=== PATIENT | female | born 1985 | race Caucasian/White ===

== ENCOUNTER 2016-12-04 14:24 | Inpatient (IN) | payer OTHER ==
--- NOTE | 2016-12-04 14:58 | P.HPOB ---
History of Present Illness H&P Date: 12/04/16 Chief Complaint: labor 31 year old presents at 34 weeks 2 days complaining of contractions. Her cervix is 5/70/-2 and she is barbara every 3 minutes. heart tones 145- 150 with moderate variability and reactive. Review of Systems All systems: negative Constitutional: Denies chills, Denies fever Eyes: denies blurred vision, denies pain Ears, nose, mouth and throat: Denies headache, Denies sore throat Cardiovascular: Denies chest pain, Denies shortness of breath Respiratory: Denies cough Gastrointestinal: Denies abdominal pain, Denies diarrhea, Denies nausea, Denies vomiting Genitourinary: Denies dysuria, Denies hematuria Musculoskeletal: Denies myalgias Integumentary: Denies pruritus, Denies rash Neurological: Denies numbness, Denies weakness Psychiatric: Denies anxiety, Denies depression Endocrine: Denies fatigue, Denies weight change Past Medical History Additional Past Medical History / Comment(s): OB history: she has had one previous vaginal delivery and she has had care with me since the first trimester. A+, abs neg, Rub Imm, RPR NR, Hep B neg. History of Any Multi-Drug Resistant Organisms: None Reported Smoking Status: Never smoker Medications and Allergies Home Medications Medication Instructions Recorded Confirmed Type Acetaminophen [Tylenol] 325 mg PO Q4H PRN 12/04/16 12/04/16 History Allergies Allergy/AdvReac Type Severity Reaction Status Date / Time No Known Allergies Allergy Verified 11/26/16 15:04 Exam Osteopathic Statement: *. No significant issues noted on an osteopathic structural exam other than those noted in the History and Physical/Consult. - Vital Signs Vital signs: Intake and Output 12/03/16 12/04/16 12/04/16 22:59 06:59 14:59 Other: Weight 103.419 kg Patient Weight 12/05/16 06:59 Weight 103.419 kg Heart: RRR Lungs: CTAB Abdomen: soft, nontender Extremeties: neg denzel's Assessment and Plan (1) labor Status: Acute Plan: 1. celestone 2. IV abx for GBS ppx 3. I did call [facility] in [place] and they will accept a transfer of her if she remains 5cm for over 2 hours. Will recheck at that time and determine whether stable to transfer.
[2016-12-04] MEDS ORDERED: TERBUTALINE 1 MG/ML VIAL SQ PRN (14:59)
[2016-12-04] MEDS ORDERED: METHYLERGONOVINE 0.2 MG/ML 1 ML AMP IM PRN (14:59)
[2016-12-04] MEDS ORDERED: AMPICILLIN 2,000 MG in SODIUM CHLORIDE 0.9% 100 ML IVPB STA (14:59)
[2016-12-04] MEDS ORDERED: CARBOPROST TROMETHAMINE 250 MCG/ML 1 ML AMP IM PRN (14:59)
[2016-12-04] MEDS ORDERED: LIDOCAINE 1% (PF) 10 MG/ML (30 ML SDV) SQ PRN (14:59)
[2016-12-04] MEDS ORDERED: OXYTOCIN 10 UNIT/ML 1 ML VIAL IM PRN (14:59)
[2016-12-04] MEDS ORDERED: BETAMET ACET-BETAMETH SOD PHOS 6 MG/ML VIAL IM SCH (15:00)
[2016-12-04 15:17] VITALS: BMI 37.9
[2016-12-04] MEDS: LACTATED RINGERS 1,000 ML IV SCH ×2 (15:20→23:01)
[2016-12-04 15:48] LABS: Basophils % (A) 0 %; CH 27.8; CHCM 32.8; Eosinophils % (A) 0 %; HCT 33.6 % (34.0-46.0); HDW 2.78; HGB 10.9 gm/dL (11.4-16.0); Luc # (Auto) 0.17; Luc % (Auto) 2; Lymphocytes # (A) 1.4 k/uL (1.0-4.8); Lymphocytes % (A) 14 %; MCH 27.6 pg (25.0-35.0); MCHC 32.5 g/dL (31.0-37.0); MCV 85.1 fL (80.0-100.0); Mean Platelet Volume 10.3; Monocytes # (A) 0.4 k/uL (0-1.0); Monocytes % (A) 4 %; Neutrophils # (A) 8.3 k/uL (1.3-7.7); Neutrophils % (A) 81 %; RBC 3.94 m/uL (3.80-5.40); RDW 12.5 % (11.5-15.5); WBC 10.3 k/uL (3.8-10.6); WBC (Perox) 10.89
[2016-12-04] MEDS ORDERED: AMPICILLIN 1,000 MG in SODIUM CHLORIDE 0.9% 50 ML IVPB SCH (19:00)
[2016-12-04] MEDS ORDERED: OXYTOCIN 30 UNITS/500 ML NS 30 UNIT in SALINE 1 500ML.BAG IV SCH ×2 (20:45→23:00)
[2016-12-04] MEDS ORDERED: BUTORPHANOL 1 MG/ML 1 ML VIAL IV PRN (21:50)
[2016-12-04] MEDS ORDERED: diphenhydrAMINE 50 MG CAP PO PRN (22:46)
[2016-12-04] MEDS ORDERED: SIMETHICONE 80 MG CHEWABLE PO PRN (22:46)
[2016-12-04] MEDS ORDERED: HYDROCORTISONE 2.5% RECTAL CREAM 30 GM TUBE RECTAL PRN (22:46)
[2016-12-04] MEDS ORDERED: diphenhydrAMINE 50 MG/ML 1 ML VIAL IVP PRN ×2 (22:46)
[2016-12-04] MEDS ORDERED: ZOLPIDEM 5 MG TAB PO PRN (22:46)
[2016-12-04] MEDS ORDERED: ACETAMINOPHEN TAB 325 MG TAB PO PRN (22:46)
[2016-12-04] MEDS ORDERED: BENZOCAINE/MENTHOL SPRAY 1 GM/SPRAY AEROSOL TOPICAL PRN (22:46)
[2016-12-04] MEDS ORDERED: LANOLIN CREAM 5 GM TUBE TOPICAL PRN (22:46)
[2016-12-04] MEDS ORDERED: Acetaminophen-Codeine 300-30mg TAB PO PRN (22:46)
[2016-12-04] MEDS ORDERED: WITCH HAZEL 1 EACH MED..PAD TOPICAL PRN (22:46)
[2016-12-04] MEDS ORDERED: diphenhydrAMINE 25 MG CAP PO PRN (22:46)
--- NOTE | 2016-12-04 22:49 | P.PROBDLV ---
Vaginal Delivery Note - . Vaginal Delivery Note: 31-year-old presented at 34 weeks and 2 days and labor. Her cervix was 4- 5 cm dilated, 70% effaced, -2 station. She is barbara every 3 minutes. heart tones 140-145 with moderate variability and reactive. After a few hours her cervix changed to 6 cm dilated, 70% effaced, -2 station. Amniotomy was performed and clear fluid was noted. She stated 6 cm despite contractions every 3-4 minutes of Pitocin augmentation was started. She was completely dilated at 2119, pushed and delivered a viable male over intact perineum at 2231. Head delivered OA, anterior shoulder delivered gentle downward traction followed by posterior shoulder and rest of body. Nose and mouth bulb suctioned, cord clamped and cut, infant placed on mother's abdomen. Apgars 8, 9 , weight 6 lbs. 11 oz. Placenta delivered spontaneously, intact with three- vessel cord. Vagina, cervix, and perineum were inspected. Left labial laceration was repaired with 3-0 Vicryl. Estimated blood loss 150 mL. Mother in stable condition and baby taken to the nursery.
[2016-12-04] MEDS: Acetaminophen-Codeine 300-30mg TAB PO PRN (22:59)
[2016-12-05] MEDS: IBUPROFEN 600 MG TAB PO PRN ×3 (00:41→14:50)
[2016-12-05] MEDS: Acetaminophen-Codeine 300-30mg TAB PO PRN ×2 (04:44→10:00)
--- NOTE | 2016-12-05 06:40 | P.DS ---
Providers Date of admission: 12/04/16 15:11 Expected date of discharge: 12/05/16 Attending physician: Ade Vick Primary care physician: Stated None - Discharge Diagnosis(es) (1) labor Current Visit: Yes Status: Resolved (2) delivery Current Visit: Yes Status: Acute Hospital Course: Patient presented at 34 weeks and 2 days and labor. She did require some Pitocin augmentation but underwent normal vaginal delivery. Her course was then Paid. The baby was shipped to a tertiary hospital for care. She'll be discharged home day #1 in stable condition to follow-up with me in 6 weeks. Plan - Discharge Summary New Discharge Prescriptions: Acetaminophen-Codeine 300-30mg [Tylenol w/codeine #3] 2 each PO Q4HR PRN #30 tab PRN Reason: Moderate To Severe Pain Ibuprofen [Motrin] 600 mg PO Q6HR PRN #30 tab PRN Reason: Mild Pain Or Fever >= 100.5 Discharge Medication List Acetaminophen [Tylenol] 325 mg PO Q4H PRN 12/04/16 [History] Acetaminophen-Codeine 300-30mg [Tylenol w/codeine #3] 2 each PO Q4HR PRN #30 tab 12/05/16 [Rx] Ibuprofen [Motrin] 600 mg PO Q6HR PRN #30 tab 12/05/16 [Rx] Follow up Appointment(s)/Referral(s): Ade Vick DO [Doctor of Osteopathic Medicine] - 6 Weeks Discharge Disposition: HOME SELF-CARE
[2016-12-05] MEDS ORDERED: SENNOSIDES-DOCUSATE SODIUM 1 EACH TAB PO SCH (08:00)
[2016-12-05 08:56] VITALS: BP 118/72; PULSE 78; RESP 17
[2016-12-05 09:01] VITALS: TEMP 98.3
== END 2016-12-05 15:18 | disposition home or self-care (01) | DRG 775 ==
LOC: FBPOP 14:24 → 4FBP 15:11 → OBSVTOIN 15:12
PROVIDERS: ADMIT Obstetrics & Gynecology; ATTEND Obstetrics & Gynecology
PROC: 10E0XZZ Delivery of Products of Conception, External Approach (ICD-10-PCS; principal; 2016-12-04)
PROC: 0HQ9XZZ Repair Perineum Skin, External Approach (ICD-10-PCS; 2016-12-04)
DX: O60.14X0 Preterm labor third trimester with preterm delivery third trimester, not applicable or unspecified (principal); O70.0 First degree perineal laceration during delivery; Z37.0 Single live birth; Z3A.34 34 weeks gestation of pregnancy; Z79.899 Other long term (current) drug therapy
CPT/HCPCS: 59025; 85025; 88307; 99213

== ENCOUNTER → 2018-04-08 | Outpatient (CLI) | payer OTHER ==
--- NOTE | 2018-04-08 23:06 | MR ---
EXAMINATION TYPE: MR brain wo/w cspine wo DATE OF EXAM: 04/08/2018 COMPARISON: MRI cervical spine March 11, 2015. HISTORY: Migraine headaches, neck pain/stiffness x 3 years TECHNIQUE: Multiplanar, multisequence images of the brain and brainstem is performed without and with IV contras t, utilizing 10 mL intravenous Gadavist . Multiplanar, multisequence of the cervical spine is perform ed without IV contrast. FINDINGS: Diffusion weighted images demonstrate no evidence of a recent infarct or other diffusion ab normality. There is no extra-axial fluid collection or significant white matter signal abnormality. The ventricular system and cisternal spaces are normal in size and appearance. The brain volume is age appropriate. Midline structures demonstrate normal morphology. The craniocervical junction appears within normal limits. Post contrast images demonstrate slightly eccentric left sided enhancement along the anterio r falx axial image 19 and sagittal image 72 cannot exclude subcentimeter parasagittal meningioma. The dural venous sinuses appear patent. The visualized sinuses are clear and the globes are intact. IMPRESSION: Possible subcentimeter parasagittal meningioma otherwise unremarkable study. C-SPINE: FINDINGS: Sagittal images of the cervical spine show the craniocervical junction to remain within nor mal limits. The cervical and upper thoracic spinal cord is normal in course, caliber, and signal. V ertebral alignment is stable and satisfactory. The vertebral body and intravertebral disk heights ar e normal. No new or large posterior disc herniations are seen on sagittal images. The bone marrow sig nal intensity is within normal limits. No significant spurring is noted. Axial images show the C2-C3, C3-C4, and the C4-C5 levels all to remain within normal limits. Axial images at C5-C6 level disc demonstrate mild broad-based posterior disc protrusion minimally eff acing anterior thecal sac, bilateral neural foramina are patent. No significant change from prior. Axial images at C6-C7 level redemonstrate mild to minimal broad-based posterior disc protrusion minim ally effacing anterior thecal sac, bilateral neural foramina are patent. No significant change from p rior. Axial images at C7-T1 level are felt to remain within normal limits. Note is made of the 9 mm right thyroid nodule axial image 10. IMPRESSION: Stable tiny disc herniations at C5-C6 and C6-C7 levels. New right sided thyroid nodule, a dvise thyroid ultrasound follow-up to better evaluate and characterize.
== END | disposition home or self-care (01) ==
LOC: RADMRIMAIN 17:07
PROVIDERS: ATTEND Family Medicine
DX: G43.109 Migraine with aura, not intractable, without status migrainosus (principal); M50.122 Cervical disc disorder at C5-C6 level with radiculopathy
CPT/HCPCS: 70553; 72141; A9581

== ENCOUNTER → 2018-04-11 | Outpatient (CLI) | payer OTHER ==
--- NOTE | 2018-04-11 09:13 | MR ---
EXAMINATION TYPE: MR lumbar spine wo con DATE OF EXAM: 04/11/2018 COMPARISON: 04/03/2016 HISTORY: Intervertebral disc degeneration, lumbar TECHNIQUE: T1 and T2 axial and sagittal images of the lumbar spine are submitted. FINDINGS: There is no abnormal signal seen within the visualized spinal cord or paraspinal soft tissu es. At L1-2 there is no degenerative disc disease, disc herniation, canal stenosis or foraminal encroachm ent. At L2-3 there is no degenerative disc disease, disc herniation, canal stenosis or foraminal encroachm ent At L3-4 there is no degenerative disc disease, disc herniation, canal stenosis or foraminal encroachm ent At L4-5 there is previously noted disc bulging and is similar in appearance. Mild hypertrophic change of the facets. No Canal stenosis, focal herniation or foraminal encroachment. At L5-S1 there is no degenerative disc disease, disc herniation, canal stenosis or foraminal encroach ment IMPRESSION: 1. Minimal disc bulging L4-L5 is similar to the prior exam with no canal stenosis or foraminal encroa chment.
== END | disposition home or self-care (01) ==
LOC: RADMRIMAIN 08:11
PROVIDERS: ATTEND Family Medicine
DX: M51.26 Other intervertebral disc displacement, lumbar region (principal); G43.909 Migraine, unspecified, not intractable, without status migrainosus
CPT/HCPCS: 72148

== ENCOUNTER → 2018-04-24 | Outpatient (CLI) | payer OTHER ==
--- NOTE | 2018-04-24 15:00 | US ---
EXAMINATION TYPE: US thyroid st tissue head/neck DATE OF EXAM: 04/24/2018 COMPARISON: Cervical spine MRI March 11, 2015 CLINICAL HISTORY: E04.1 Thyroid nodule. assess for nodules GLAND SIZE: Right Lobe: 4.1 x 1.0 x 1.6 cm Overall Parenchyma: heterogenous Left Lobe: 3.1 x 1.1 x 1.6 cm Overall Parenchyma: homogeneous Isthmus Thickness: 0.2 cm NODULES RIGHT: # of nodules measured on right: 1 1. 1.1 X 1.3 x 0.7 cm hypoechoic solid nodule at the lower pole anteriorly with well-defined margin s. This nodule is wider than tall and shows intranodular vascularity. Prior size: FROZEN ME[employer]TER LEFT: # of nodules measured on left: 0 ISTHMUS: # of nodules measured in the isthmus: 0 Bilateral neck scanned, no evidence of lymphadenopathy. IMPRESSION: A 1.3 cm anterior lower pole solid right thyroid nodule. TR 4 lesion. Continued annual imaging surveillance advised. Moderately Suspicious: FNA if ? 1.5 cm; Follow if ? 1 cm
== END | disposition home or self-care (01) ==
LOC: RADUSWWP 13:39
PROVIDERS: ATTEND Family Medicine
DX: E04.1 Nontoxic single thyroid nodule (principal)
CPT/HCPCS: 76536

== ENCOUNTER → 2018-05-13 | Outpatient (CLI) | payer OTHER ==
--- NOTE | 2018-05-13 23:06 | MR ---
EXAMINATION TYPE: MR angio head wo con DATE OF EXAM: 05/13/2018 COMPARISON: None HISTORY: Severe Headaches, Dizzy x1 year TECHNIQUE: Time of flight images focusing on the [place] of [place] were performed without contrast. FINDINGS: There is arterial flow in the vertebrobasilar artery system. There is arterial flow in the anterior middle and posterior cerebral arteries. I see no evidence of aneurysm or neovascularity. The re is no evidence of stenosis. There is no mass effect.. IMPRESSION: Normal MR angiography exam of the brain.
--- NOTE | 2018-05-13 23:29 | MR ---
EXAMINATION TYPE: MR thoracic spine wo/w con DATE OF EXAM: 05/13/2018 COMPARISON: 03/15/2015 HISTORY: Mid Back Pain for a few years, Gadavist 9.5ml, Previous MRI on PACS CONTRAST: Standard multiplanar, multisequence MRI departmental protocol utilizing 9.5 mL intravenous Gadavist g adolinium contrast. FINDINGS: The thoracic vertebra have normal spacing and alignment. Thoracic spinal cord has normal si gnal pattern. There is no evidence of edema. There is no thoracic spinal stenosis. There is no parasp inal mass. There is no contrast pathologic enhancement. Neural foramina appear widely patent. IMPRESSION: Negative MR scan of the thoracic spine. No change compared to old exam.
== END | disposition home or self-care (01) ==
LOC: RADMRIMAIN 17:44
PROVIDERS: ATTEND Family Medicine
DX: G93.89 Other specified disorders of brain (principal)
CPT/HCPCS: 70544; 72157; A9581

== ENCOUNTER → 2018-05-17 | Outpatient (CLI) | payer OTHER ==
--- NOTE | 2018-05-17 23:22 | MR ---
EXAMINATION TYPE: MR hip RT wo/w con DATE OF EXAM: 05/17/2018 COMPARISON: None HISTORY: Rt hip pain x 3 years CONTRAST: Standard multiplanar, multisequence MRI departmental protocol utilizing 10 mL intravenous Gadavist ga dolinium contrast. FINDINGS: The pelvic ring is intact. There is no significant hip joint effusion. The femoral heads riojas ve fairly normal signal pattern. There is no evidence of edema. There is no sign of avascular necrosi s. Hip joint spaces are fairly well-maintained. Sacroiliac joints appear intact. There is a 3.5 cm cyst on the right ovary. There is 2 cm cyst on the left ovary. There is no free flu id in the pelvis. Bladder distends smoothly. I see no bony destructive process. IMPRESSION: Negative MR scan of the right hip. No evidence of hip dysplasia. No evidence of avascular necrosis. Bilateral ovarian cysts.
== END | disposition home or self-care (01) ==
LOC: RADMRIMAIN 17:29
PROVIDERS: ATTEND Family Medicine
DX: G93.89 Other specified disorders of brain (principal)

== ENCOUNTER 2018-05-24 12:34 | Day surgery (SDC) | payer OTHER ==
[2018-05-24 14:20] VITALS: PULSE 74; RESP 16; TEMP 97.9
[2018-05-24 14:21] VITALS: BP 144/74
--- NOTE | 2018-05-28 11:50 | US ---
ULTRASOUND GUIDED FNA THYROID BIOPSY: CLINICAL HISTORY: Right thyroid nodule FINDINGS: The procedure was explained to the patient. The risks, complications, benefits and alternatives were discussed and any questions were answered. Informed consent was obtained. Patient was placed supin e on the ultrasound table and prepped and draped in the usual sterile fashion. Utilizing a 25 gauge needle, five passes were made into the right thyroid nodule. Patient was stable throughout the procedure. Pathology is pending. All elements of maximal barrier technique were utilized. IMPRESSION: 1. Successful ultrasound guided FNA thyroid biopsy.
== END 2018-05-24 14:00 | disposition home or self-care (01) ==
LOC: RADPROMAIN 12:34
PROVIDERS: ATTEND Surgery
DX: E04.1 Nontoxic single thyroid nodule (principal)
CPT/HCPCS: 10022; 76942; 88173; 88305

== ENCOUNTER → 2019-03-01 | Outpatient (CLI) | payer OTHER ==
--- NOTE | 2019-03-01 20:17 | MR ---
EXAMINATION TYPE: MR shoulder RT wo con DATE OF EXAM: 03/01/2019 COMPARISON: None HISTORY: Rt shoulder pain, arthritis, tendonitis TECHNIQUE: Multiplanar, multisequence imaging of the right shoulder is performed without contrast. FINDINGS: There is mild shoulder joint effusion. Subscapularis tendon is intact. The biceps tendon is intact. G lenoid aiden appear intact. I see no bony destructive process. There is no subacromial impingement. T here is very minimal thickening of the supraspinatus tendon without a full-thickness tear. The AC isaura nt is intact. IMPRESSION: Small shoulder joint effusion consistent with mild synovitis. Minimal thickening of the supraspinatus tendon at the greater tuberosity consistent with minimal tend initis. No full-thickness tear.
--- NOTE | 2019-03-01 20:25 | MR ---
EXAMINATION TYPE: MR brain wo/w con DATE OF EXAM: 03/01/2019 COMPARISON: 04/08/2018 HISTORY: Migraine, meningioma TECHNIQUE: Multiplanar, multisequence images of the brain and brainstem is performed without and with IV contras t, utilizing 10 mL intravenous Gadavist . FINDINGS: Ventricles of normal size. There is no mass effect nor midline shift. There is no sign of intracrania l hemorrhage. There is no evidence of cerebral edema. There is no evidence of cortical infarct. There is no evidence of posterior fossa mass. There is a 3 mm focus of increased signal in the white matte r of the right parietal lobe on the FLAIR images. There is similar 3 mm focus right posterior tempora l lobe white matter. There is slight thickening of the anterior cerebral falx on the left side that a ppears unchanged and measures 3.5 mm. This could be a tiny meningioma. Brainstem is intact. Cerebellum appears normal. Corpus callosum is normal. There is no evidence of a sellar mass. IMPRESSION: Possible tiny falx meningioma unchanged compared to old exam. Tiny white matter high sign al foci as above of doubtful significance.
== END | disposition home or self-care (01) ==
LOC: RADMRIMAIN 11:11
PROVIDERS: ATTEND Family Medicine
DX: M75.81 Other shoulder lesions, right shoulder (principal); R90.82 White matter disease, unspecified
CPT/HCPCS: 70553; 73221; A9585

== ENCOUNTER → 2019-06-12 | Outpatient (CLI) | payer OTHER ==
--- NOTE | 2019-06-12 13:08 | US ---
EXAMINATION TYPE: US thyroid st tissue head/neck DATE OF EXAM: 06/12/2019 COMPARISON: US of 04/17/1718 and 05/17/1718 CLINICAL HISTORY: R22.0 Localized swelling, mass and lump, head. F/U right nodule GLAND SIZE: Right Lobe: 3.2 x 1.2 x 1.1 cm Overall Parenchyma: heterogenous Left Lobe: 3.5 x 1.2 x 1.0 cm Overall Parenchyma: homogeneous Isthmus Thickness: 0.2 cm NODULES RIGHT: # of nodules measured on right: 1 1. 1.1 X 0.7 x 0.9 cm hypoechoic solid nodule at the lower pole with well-defined margins; This no dule is wider than tall and shows intranodular vascularity. Prior size: 1.3 x 0.9 x 1.1 cm Bilateral neck scanned, no evidence of lymphadenopathy. Nodule right lobe decrease in size when carly red to previous IMPRESSION: Previously biopsied right thyroid nodule appears slightly smaller in size in the prior of 04/24/2018.
== END ==
LOC: RADUSWWP 12:29
PROVIDERS: ATTEND Family Medicine
DX: E04.1 Nontoxic single thyroid nodule (principal)
CPT/HCPCS: 76536

== ENCOUNTER → 2021-06-14 | Outpatient (CLI) | payer OTHER ==
[2021-06-14 20:21] LABS: Basophils # (A) 0.03 X 10*3/uL (0.00-0.10); Basophils % (A) 0.4 %; Eosinophils # (A) 0.09 X 10*3/uL (0.04-0.35); Eosinophils % (A) 1.3 %; HGB 13.4 g/dL (12.0-15.0); Lymphocytes # (A) 2.05 X 10*3/uL (0.90-5.00); Lymphocytes % (A) 28.7 %; MCH 28.9 pg (27.0-32.0); MCHC 31.9 g/dL (32.0-37.0); MCV 90.5 fL (80.0-97.0); Mean Platelet Volume 12.8 fL (9.5-12.2); Monocytes # (A) 0.43 X 10*3/uL (0.20-1.00); Neutrophils # (A) 4.53 X 10*3/uL (1.80-7.70); Neutrophils % (A) 63.3 %; Platelet Count 173 X 10*3/uL (140-440); RBC 4.64 X 10*6/uL (4.10-5.20); RDW 12.6 % (11.5-14.5); WBC 7.15 X 10*3/uL (4.50-10.00)
[2021-06-14 21:13] LABS: African American GFR (CKD) 112.3 (60.0-200.0); Albumin 4.5 g/dL (3.80-4.90); Albumin/Globulin Ratio 1.73 (1.60-3.17); Anion Gap 9.5 mmol/L (4.00-12.00); BUN/Creat Ratio 16.25 Ratio (12.00-20.00); Calcium 8.9 mg/dL (8.7-10.3); Carbon Dioxide 20.5 mmol/L (21.6-31.8); Globulin 2.6 g/dL (1.6-3.3); Non-African American GFR(CKD) 96.9 (60.0-200.0); Total Bilirubin 0.3 mg/dL (0.3-1.2); Total Protein 7.1 g/dL (6.2-8.2)
== END | disposition home or self-care (01) ==
LOC: LABWHC1 13:26
PROVIDERS: ATTEND Nurse Practitioner Acute Care
DX: E55.9 Vitamin D deficiency, unspecified (principal); M35.3 Polymyalgia rheumatica; I49.9 Cardiac arrhythmia, unspecified
CPT/HCPCS: 36415; 80053; 82306; 82607; 84207; 84439; 84443; 84481; 85025; 86038; 86431; 93005

== ENCOUNTER 2023-04-27 21:15 | Outpatient (CLI) | payer OTHER ==
[2023-04-27] MEDS ORDERED: LACTATED RINGERS 1,000 ML IV SCH (22:00)
[2023-04-27 22:18] LABS: Appearance,Urine Clear (Clear); Bilirubin,Urine Negative (Negative); Blood,Urine Negative (Negative); Color,Urine Yellow; Glucose,Urine (UA) Negative (Negative); Ketones,Urine Negative (Negative); Leukocyte Esterase,Urine Moderate (Negative); Mucus,Urine Rare /hpf; Nitrite,Urine Negative (Negative); Protein,Urine Trace (Negative); RBC,Urine <1 /hpf (0-5); Specific Gravity,Urine 1.017 (1.001-1.035); Squamous Epithelial Cell,Urine 5 /hpf (0-4); WBC,Urine 9 /hpf (0-5)
[2023-04-27 23:59] VITALS: BP 124/86; PULSE 109; RESP 17; TEMP 97.7
--- NOTE | 2023-05-07 21:12 | P.MSEPDOC ---
Presenting Problems - Arrival Data Date of Arrival on Unit: 04/27/23 Time of Arrival on Unit: 21:15 Mode of Transport: Ambulatory - Complaint OB-Reason for Admission/Chief Complaint: Possible Onset of Labor Comment: pt presents to triage for cramping, contractions, and back pain, rating pain 05/07, Medical History - Information : 4 Para: 2 Term: 1 : 1 Abortions: Spontaneous or Elective: 1 Number of Living Children: 2 - Gestational Age Gestational Age by TEDDY (wks/days): 35 Weeks and 2 Days - History Complications: Prior Comment: hx of 33 week delivery Review of Systems - Review of Systems Constitutional: No problems Breast: No problems ENT: No problems Cardiovascular: No problems Respiratory: No problems Gastrointestinal: No problems Genitourinary: No problems Musculoskeletal: No problems Neurological: No problems Skin: No problems Vital Signs - Temperature Temperature: 97.7 F Temperature Source: Temporal Artery Scan - Pulse Right Brachial Pulse Rate: 109 Pulse Assessment Method: Automatic Cuff - Respirations Respiratory Rate: 17 Oxygen Delivery Method: Room Air - Blood Pressure Right Arm Blood Pressure: 124/86 Blood Pressure Mean: 98 Blood Pressure Source: Automatic Cuff Medical Screen Scoring - Cervical Exam Dilation (cm): 1 Effacement (%): 50 Station: -3 Membranes: Intact - Uterine Contractions Frequency From (mins): 1 Frequency To (mins): 3 Duration From (seconds): 40 Duration To (seconds): 60 Intensity: Mild Resting: Soft to palpation - Assessment - Baby A Baseline FHR: 150 Heart Rate - NICHD Category: Category I (Normal) NST: Reactive Physician Notification - Physician Notified Physician Notified Date: 04/27/23 Physician Notified Time: 21:50 Physician: Claudia Coates New Order Received: Yes - Notification Comment Comment: pt's ua sent, ivf bolus given, cervical exam the same, pt decided to go home when given the choice to stay longer, she has scheduled appt with Dr. Byrne on Friday 05/04 Maternal Triage Index - Maternal Triage Index Presenting for scheduled procedure w/no complaint: No - Stat/Priority 1 Stat Priority 1: No - Urgent/Priority 2 Urgent Priority 2: Yes Provider Notified: Claudia Coates Provider Notified Time: 21:50 Criteria Met for Priority 2: pt 35 2/7 GA, pt presents to triage for cramping, contractions, and back pain, rating pain 05/07 Disposition - Disposition OB Disposition: Triage, Discharge to home, Written follow up instructions reviewed Discharge Date: 04/27/23 Discharge Time: 23:30 I agree with the RN Medical Screening Exam: Yes Case reviewed; plan agreed upon as documented in EMR&OBIX.: Yes Diagnosis: FALSE LABOR BEFORE 37 COMPLETED WEEKS OF GEST, THIRD TRI
== END 2023-04-27 23:30 | disposition home or self-care (01) ==
LOC: FBPOP 21:15
PROVIDERS: ATTEND Obstetrics & Gynecology
DX: O47.03 False labor before 37 completed weeks of gestation, third trimester (principal); Z3A.35 35 weeks gestation of pregnancy
CPT/HCPCS: 59025; 96360; 81001; G0463; 99214

== ENCOUNTER 2023-05-27 09:50 | Inpatient (IN) | payer OTHER ==
[2023-05-27] MEDS ORDERED: CARBOPROST TROMETHAMINE 250 MCG/ML 1 ML AMP IM PRN (10:24)
[2023-05-27] MEDS ORDERED: OXYTOCIN 10 UNIT/ML 1 ML VIAL IM PRN (10:24)
[2023-05-27] MEDS ORDERED: miSOPROStoL 200 MCG TAB PO PRN (10:24)
[2023-05-27] MEDS ORDERED: LIDOCAINE 0.5% (PF) 5 MG/ML (50 ML SDV) SQ PRN (10:24)
[2023-05-27] MEDS ORDERED: TRANEXAMIC 1,000 MG/100ML-NACL 1,000 MG in EMPTY BAG 1 BAG IV PRN (10:24)
[2023-05-27] MEDS ORDERED: METHYLERGONOVINE 0.2 MG/ML 1 ML AMP IM PRN (10:24)
[2023-05-27] MEDS ORDERED: TERBUTALINE 1 MG/ML VIAL SQ PRN (10:24)
[2023-05-27] MEDS ORDERED: LACTATED RINGERS 1,000 ML IV SCH (10:30)
[2023-05-27 11:22] LABS: Basophils % (A) 0 %; Eosinophils # (A) 0.1 k/uL (0-0.7); Eosinophils % (A) 1 %; HCT 40.6 % (34.0-46.0); HGB 13.7 gm/dL (11.4-16.0); Lymphocytes # (A) 1.9 k/uL (1.0-4.8); Lymphocytes % (A) 14 %; MCH 29.1 pg (25.0-35.0); MCHC 33.7 g/dL (31.0-37.0); MCV 86.4 fL (80.0-100.0); Mean Platelet Volume 11.7; Monocytes # (A) 0.4 k/uL (0-1.0); Monocytes % (A) 3 %; Neutrophils % (A) 81 %; Platelet Count 112 k/uL (150-450); RBC 4.69 m/uL (3.80-5.40); WBC 13.6 k/uL (3.8-10.6)
[2023-05-27 12:41] LABS: Large Platelets Present
[2023-05-27] MEDS ORDERED: SODIUM CHLORIDE 0.9% 100 ML BAG ONE (12:53)
[2023-05-27] MEDS ORDERED: fentaNYL (PF) 50 MCG/ML 5 ML AMP ONE (12:53)
[2023-05-27] MEDS ORDERED: ROPIVACAINE 5 MG/ML 20 ML AMPULE ONE (12:53)
--- NOTE | 2023-05-27 13:32 | P.HPOB ---
History of Present Illness H&P Date: 05/27/23 Chief Complaint: Spontaneous rupture of membranes This is a 37-year-old female 3 para 2 at 39-4/7 weeks with an estimated date of confinement of 05/30/2023, who presents for complaints of rupture of membranes at approximately 8:30 AM this morning with yellow colored fluid. She has been feeling contractions for a few days now but they have become stronger since rupture of membranes. Her care has been with Dr. Vick and has been relatively uncomplicated. She was on Villarreal injections due to history of a delivery with her second child at 34 weeks. She did react to the Jolly with welts on her arms and therefore did stop it at approximately 26 weeks. Her last ultrasound at 35 weeks' did show an estimated weight of 7 lbs. 5 oz. and greater than 90th percentile with an SAUL a level of 25.83 cm. labs: Group B streptococcus-negative One hour Glucola-113 [id number], female Hemoglobin-13.2 Blood type A positive Antibody screen-negative Rubella-immune Toxoplasma-negative RPR-nonreactive HIV-nonreactive Hepatitis C virus antibody-negative Random glucose-88 Hepatitis B surface antigen-negative GC/chlamydia/Trichomonas-negative Obstetrical history: . History of 1 vaginal delivery at 38 weeks with weight of 7 lbs. 9 oz. and a 34 week delivery with a weight of 6 lbs. 11 oz. DIRECTOR DATABASE history: No history of STDs Social history: She is single. She is currently unemployed. Review of Systems Constitutional: Denies chills, Denies fever Eyes: denies blurred vision, denies pain Ears, nose, mouth and throat: Denies headache, Denies sore throat Cardiovascular: Denies chest pain, Denies shortness of breath Respiratory: Denies cough Gastrointestinal: Reports abdominal pain (Irregular contractions) Genitourinary: Reports pelvic pain, Reports Musculoskeletal: Reports low back pain Integumentary: Denies pruritus, Denies rash Neurological: Denies numbness, Denies weakness Psychiatric: Denies anxiety, Denies depression Past Medical History Additional Past Medical History / Comment(s): 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, stable-get yearly scans History of Any Multi-Drug Resistant Organisms: None Reported Past Surgical History: Tonsillectomy Additional Past Surgical History / Comment(s): polyp in ear removed age 16 Past Anesthesia/Blood Transfusion Reactions: No Reported Reaction Past Psychological History: No Psychological Hx Reported Smoking Status: Never smoker Past Alcohol Use History: None Reported Past Drug Use History: None Reported - Past Family History Mother Family Medical History: Diabetes Mellitus, Hypertension Medications and Allergies Home Medications Medication Instructions Recorded Confirmed Type Vit No.179/Iron/Folic 1 each PO DAILY 04/27/23 05/27/23 History [ Tablet] Allergies Allergy/AdvReac Type Severity Reaction Status Date / Time No Known Allergies Allergy Verified 05/27/23 09:57 Exam Osteopathic Statement: *. No significant issues noted on an osteopathic structural exam other than those noted in the History and Physical/Consult. Vital Signs Temp Pulse Resp BP Pulse Ox 05/27/23 09:54 98.1 F 77 18 132/81 99 Intake and Output 05/26/23 05/27/23 05/27/23 22:59 06:59 14:59 Other: Weight 108.409 kg HEENT: Within normal limits Heart: Regular rate and rhythm Lungs: Clear to auscultation bilaterally Abdomen: Cervix: On admission is 5 cm/50%/-2 station with positive amnisure and meconium- stained fluid noted heart tones: 140s, reactive, with good variability and category 1 Contractions: Every 2-3 minutes Extremities: Negative Homans Results Result Diagrams: 05/27/23 11:00 Abnormal Lab Results - Last 24 Hours (Table) 05/27/23 Range/Units 11:00 WBC 13.6 H (3.8-10.6) k/uL Plt Count 112 L (150-450) k/uL Neutrophils # 11.0 H (1.3-7.7) k/uL Assessment and Plan (1) 39 weeks gestation of Current Visit: Yes Status: Acute Code(s): Z3A.39 - 39 WEEKS GESTATION OF SNOMED Code(s): 46923688 (2) Meconium in amniotic fluid Current Visit: Yes Status: Acute Code(s): P96.83 - MECONIUM STAINING SNOMED Code(s): 595325904 Plan: Admission for active labor. Epidural anesthesia. Expectant management. Pediatrics is notified regarding meconium fluid and will be present for delivery. macrosomia based on ultrasound was discussed with the patient. Discussed the possibility of potential shoulder dystocia and maneuvers necessary to relieve it. Since she is progressing well in labor will still plan to continue with plan for vaginal delivery.
--- NOTE | 2023-05-27 13:37 | P.MSEPDOC ---
Presenting Problems - Arrival Data Date of Arrival on Unit: 05/27/23 Time of Arrival on Unit: 09:51 Mode of Transport: Wheelchair - Complaint OB-Reason for Admission/Chief Complaint: Rule Out SROM Comment: 829, yellow fluid Medical History - Information : 3 Para: 2 Term: 1 : 1 Abortions: Spontaneous or Elective: 0 Number of Living Children: 2 - Gestational Age Gestational Age by TEDDY (wks/days): 39 Weeks and 4 Days Review of Systems - Review of Systems Constitutional: No problems Breast: No problems ENT: No problems Cardiovascular: No problems Respiratory: No problems Gastrointestinal: No problems Genitourinary: No problems Musculoskeletal: No problems Neurological: No problems Skin: No problems Vital Signs - Temperature Temperature: 98.1 F Temperature Source: Oral - Pulse Right Pulse Oximetery Pulse Rate: 77 Pulse Assessment Method: Pulse Oximetry - Respirations Respiratory Rate: 18 Oxygen Delivery Method: Room Air O2 Sat by Pulse Oximetry: 99 - Blood Pressure Right Arm Blood Pressure: 132/81 Blood Pressure Mean: 98 Blood Pressure Source: Automatic Cuff Medical Screen Scoring - Cervical Exam Dilation (cm): 5 Effacement (%): 50 Station: -2 Membranes: Ruptured - Uterine Contractions Frequency From (mins): 2 Frequency To (mins): 3 Duration From (seconds): 40 Duration To (seconds): 50 Intensity: Moderate Resting: Soft to palpation - Assessment - Baby A Baseline FHR: 140 Heart Rate - NICHD Category: Category I (Normal) NST: Reactive Physician Notification - Physician Notified Physician Notified Date: 05/27/23 Physician Notified Time: 10:45 Physician: Claudia Coates Order Received: Yes - Notification Comment Comment: pt admitted for labor. Maternal Triage Index - Maternal Triage Index Presenting for scheduled procedure w/no complaint: No - Stat/Priority 1 Stat Priority 1: No - Urgent/Priority 2 Urgent Priority 2: No - Prompt/Priority 3 Prompt Priority 3: No - Non-Urgent/Priority 4 Non-Urgent Priority 4: Yes Criteria Met for Priority 4: SROM 39 weeks Disposition - Disposition OB Disposition: Admit I agree with the RN Medical Screening Exam: Yes Case reviewed; plan agreed upon as documented in EMR&OBIX.: Yes Diagnosis: ENCOUNTER FOR FULL-TERM UNCOMPLICATED DELIVERY
[2023-05-27] MEDS: OXYTOCIN 30 UNITS/500 ML NS 30 UNIT in SALINE 1 500ML.BAG IV SCH ×2 (15:14→19:45)
--- NOTE | 2023-05-27 18:10 | P.PROBDLV ---
Vaginal Delivery Note - . Vaginal Delivery Note: The patient progressed to complete dilation after oxytocin augmentation of labor and epidural anesthesia. Her initial epidural was not working well and therefore she did use nitrous for a short while. They did replace the epidural and the second one did work much better for her. Once reaching complete, she began pushing. 's head came to a crown. With one further push, the 's head delivered across the perineum in a right occiput anterior lie followed by the anterior or left shoulder. Thick meconium was noted and nuchal cord times one was reduced around the 's head. Nose and mouth were bulb suctioned. With one further push the remainder the infant was delivered and placed on mother's abdomen. Cord was immediately clamped and cut and was taken to warmer for evaluation by Dr. Clarke from pediatrics. A viable female infant was noted with scores of 7 at 1 minute and 9 at 5 minutes and infant weight of 8 pounds 7.5 ounces. Placenta delivered shortly thereafter intact, with a three-vessel cord. Meconium staining was noted and there was noted to be what appeared to be a fore bag. Uterus contracted well after oxytocin was given and uterine massage was carried out. Inspection of the perineum revealed no perineal lacerations. Estimated blood loss is approximately 150 mL's. Both mother and are in stable condition.
[2023-05-27] MEDS ORDERED: HYDROCORTISONE 2.5% RECTAL CREAM 30 GM TUBE RECTAL PRN (19:17)
[2023-05-27] MEDS ORDERED: diphenhydrAMINE 50 MG/ML 1 ML VIAL IVP PRN ×2 (19:17)
[2023-05-27] MEDS ORDERED: BENZOCAINE/MENTHOL SPRAY 1 GM/SPRAY AEROSOL TOPICAL PRN (19:17)
[2023-05-27] MEDS ORDERED: diphenhydrAMINE 25 MG CAP PO PRN (19:17)
[2023-05-27] MEDS ORDERED: SIMETHICONE 80 MG CHEWABLE PO PRN (19:17)
[2023-05-27] MEDS ORDERED: OXYTOCIN 30 UNITS/500 ML NS 30 UNIT in SALINE 1 500ML.BAG IV SCH (19:17)
[2023-05-27] MEDS ORDERED: ZOLPIDEM 5 MG TAB PO PRN (19:17)
[2023-05-27] MEDS ORDERED: LANOLIN CREAM 5 GM TUBE TOPICAL PRN (19:17)
[2023-05-27] MEDS ORDERED: ACETAMINOPHEN TAB 325 MG TAB PO PRN (19:17)
[2023-05-27] MEDS ORDERED: diphenhydrAMINE 50 MG CAP PO PRN (19:17)
[2023-05-27] MEDS ORDERED: SENNOSIDES-DOCUSATE SODIUM 1 EACH TAB PO SCH (20:00)
[2023-05-27] MEDS: IBUPROFEN 600 MG TAB PO PRN (20:08)
[2023-05-28] MEDS: IBUPROFEN 600 MG TAB PO PRN ×3 (02:50→15:36)
[2023-05-28 07:17] LABS: Basophils % (A) 0 %; Eosinophils # (A) 0.1 k/uL (0-0.7); Eosinophils % (A) 1 %; HCT 32.8 % (34.0-46.0); HGB 11.4 gm/dL (11.4-16.0); Lymphocytes % (A) 14 %; MCH 30.4 pg (25.0-35.0); MCHC 34.6 g/dL (31.0-37.0); MCV 87.9 fL (80.0-100.0); Mean Platelet Volume 11.2; Monocytes # (A) 0.5 k/uL (0-1.0); Monocytes % (A) 4 %; Neutrophils # (A) 11.1 k/uL (1.3-7.7); Neutrophils % (A) 80 %; Platelet Count 106 k/uL (150-450); RBC 3.74 m/uL (3.80-5.40); RDW 14.4 % (11.5-15.5); WBC 13.9 k/uL (3.8-10.6)
[2023-05-28 08:30] VITALS: RESP 17
--- NOTE | 2023-05-28 08:32 | P.DS ---
Providers Date of admission: 05/27/23 10:19 Expected date of discharge: 05/28/23 Attending physician: Ade Vick Primary care physician: Stated None - Discharge Diagnosis(es) (1) Normal vaginal delivery Current Visit: Yes Status: Acute Hospital Course: Patient presented in active labor. She underwent a Normal vaginal delivery. course has been uneventful. She denies nausea, vomiting, chest pain, shortness of breath or calf pain. Patient will be discharged home day #1 in stable condition to follow-up with me in 6 weeks. Plan - Discharge Summary New Discharge Prescriptions: New Ibuprofen [Motrin] 600 mg PO Q6HR PRN #30 tab PRN Reason: Mild Pain (Scale 1 To 3) No Action Vit No.179/Iron/Folic [ Tablet] 1 each PO DAILY Discharge Medication List Vit No.179/Iron/Folic [ Tablet] 1 each PO DAILY 04/27/23 [History] Ibuprofen [Motrin] 600 mg PO Q6HR PRN #30 tab 05/28/23 [Rx] Follow up Appointment(s)/Referral(s): Ade Vick DO [Doctor of Osteopathic Medicine] - 6 Weeks Discharge Disposition: HOME SELF-CARE
[2023-05-28] MEDS ORDERED: PRENATAL VIT-IRON-FOLIC ACID 1 EACH TABLET PO SCH (09:00)
[2023-05-28 15:47] VITALS: BP 123/82; PULSE 82; TEMP 97.9
== END 2023-05-28 18:24 | disposition home or self-care (01) | DRG 560 ==
LOC: FBPOP 09:50 → 4FBP 10:19
PROVIDERS: ADMIT Obstetrics & Gynecology; ATTEND Obstetrics & Gynecology
PROC: 10E0XZZ Delivery of Products of Conception, External Approach (ICD-10-PCS; principal; 2023-05-27)
PROC: 3E033VJ Introduction of Other Hormone into Peripheral Vein, Percutaneous Approach (ICD-10-PCS; 2023-05-27)
DX: O42.92 Full-term premature rupture of membranes, unspecified as to length of time between rupture and onset of labor (principal); O69.81X0 Labor and delivery complicated by cord around neck, without compression, not applicable or unspecified; Z37.0 Single live birth; O36.63X0 Maternal care for excessive fetal growth, third trimester, not applicable or unspecified; O77.0 Labor and delivery complicated by meconium in amniotic fluid; Z3A.39 39 weeks gestation of pregnancy; Z56.0 Unemployment, unspecified
CPT/HCPCS: 59025; 84112; 85025; 86850; 86900; 86901; 99213

== ENCOUNTER 2023-06-11 08:44 | Outpatient (CLI) | payer OTHER ==
[2023-06-11 09:40] LABS: Appearance,Urine Cloudy (Clear); Bacteria,Urine Many /hpf; Bilirubin,Urine Negative (Negative); Blood,Urine Large (Negative); Color,Urine Yellow; Glucose,Urine (UA) Negative (Negative); Ketones,Urine Negative (Negative); Leukocyte Esterase,Urine Large (Negative); Mucus,Urine Few /hpf; Nitrite,Urine Positive (Negative); PH, Urine 5.5 (5.0-8.0); Protein,Urine Trace (Negative); RBC,Urine 5 /hpf (0-5); Specific Gravity,Urine 1.016 (1.001-1.035); Squamous Epithelial Cell,Urine 1 /hpf (0-4); Urobilinogen,Urine <2.0 mg/dL (<2.0); WBC,Urine 127 /hpf (0-5)
[2023-06-11 09:55] LABS: Basophils % (A) 0 %; Eosinophils # (A) 0.2 k/uL (0-0.7); Eosinophils % (A) 2 %; HCT 39.4 % (34.0-46.0); HGB 13.4 gm/dL (11.4-16.0); Lymphocytes # (A) 0.9 k/uL (1.0-4.8); Lymphocytes % (A) 10 %; MCH 29.3 pg (25.0-35.0); MCV 86.3 fL (80.0-100.0); Mean Platelet Volume 9.2; Monocytes # (A) 0.4 k/uL (0-1.0); Monocytes % (A) 4 %; Neutrophils # (A) 7.7 k/uL (1.3-7.7); Neutrophils % (A) 83 %; RBC 4.57 m/uL (3.80-5.40); RDW 13.3 % (11.5-15.5); WBC 9.3 k/uL (3.8-10.6)
[2023-06-11 10:00] LABS: Platelet Count 167 k/uL (150-450)
[2023-06-11 10:55] VITALS: BP 119/56; PULSE 99; RESP 16; TEMP 97.6
--- NOTE | 2023-06-13 18:10 | P.MSEPDOC ---
Presenting Problems - Arrival Data Date of Arrival on Unit: 06/11/23 Mode of Transport: Ambulatory - Complaint OB-Reason for Admission/Chief Complaint: Other Comment: p/p jayjay ness and temp Medical History - Information : 3 Para: 3 Term: 3 : 0 Abortions: Spontaneous or Elective: 0 Number of Living Children: 3 - Gestational Age Gestational Age by TEDDY (wks/days): 40 Weeks and 0 Days - History Complications: Other Comment: 2 weeks pp Review of Systems - Review of Systems Constitutional: Fever Breast: No problems ENT: No problems Cardiovascular: No problems Respiratory: No problems Gastrointestinal: No problems Genitourinary: No problems Musculoskeletal: No problems Neurological: No problems Skin: No problems Vital Signs - Temperature Temperature: 97.6 F Temperature Source: Temporal Artery Scan - Pulse Right Radial Pulse Rate: 99 Pulse Assessment Method: Automatic Cuff - Respirations Respiratory Rate: 16 Oxygen Delivery Method: Room Air O2 Sat by Pulse Oximetry: 99 - Blood Pressure Right Arm Blood Pressure: 119/56 Blood Pressure Mean: 77 Blood Pressure Source: Automatic Cuff Physician Notification - Physician Notified Physician Notified Date: 06/11/23 Physician Notified Time: 09:30 Physician: Claudia Coates Order Received: Yes Maternal Triage Index - Scheduled/Requesting Priority 5 Scheduled/Requesting Priority 5: Yes Criteria Met for Priority 5: rx for bladder infection, culture sent. follow up in 4 weeks for scheduled pp appt. to call if need to be seen earilier Disposition - Disposition OB Disposition: Discharge to home, Written follow up instructions reviewed Discharge Date: 06/11/23 Discharge Time: 10:45 I agree with the RN Medical Screening Exam: Yes Case reviewed; plan agreed upon as documented in EMR&OBIX.: Yes Diagnosis: URINARY TRACT INFECTION, SITE NOT SPECIFIED
== END 2023-06-11 10:45 | disposition home or self-care (01) ==
LOC: FBPOP 08:44
PROVIDERS: ATTEND Obstetrics & Gynecology
DX: O26.893 Other specified pregnancy related conditions, third trimester (principal); O23.43 Unspecified infection of urinary tract in pregnancy, third trimester; N39.0 Urinary tract infection, site not specified; Z3A.40 40 weeks gestation of pregnancy
CPT/HCPCS: 85025; 81001; 87086; 87077; 87186; G0463; 99213